=== PATIENT | male | born 1975 | race Caucasian/White ===

== ENCOUNTER 2019-04-29 22:05 | Emergency (ER) | payer MEDICAID ==
[~2019-04-29] VITALS: Ht 182.9 cm; Wt 80.7 kg
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
--- NOTE | 2019-04-30 00:11 | NUR ---
Patient discharged to home in stable condition. Rx and Written and verbal after care instructions given. Patient verbalizes understanding of instruction.
[2019-04-30 00:12] VITALS: BP 127/68
== END 2019-04-30 00:12 | disposition home or self-care (01) ==
LOC: ER 22:08
DX: M25.511 Pain in right shoulder (principal); F17.200 Nicotine dependence, unspecified, uncomplicated; V49.49XA Driver injured in collision with other motor vehicles in traffic accident, initial encounter; Y93.89 Activity, other specified; Y92.413 State road as the place of occurrence of the external cause; Y99.8 Other external cause status
CPT/HCPCS: 73030-TC

== ENCOUNTER 2022-06-01 16:03 | Emergency (ER) | payer MEDICAID ==
[~2022-06-01] VITALS: Ht 182.9 cm; Wt 78.9 kg
[2022-06-01 16:03] VITALS: BP 164/95
[2022-06-01] MEDS ORDERED: IBUPROFEN 600 MG TABLET ONE (17:26)
[2022-06-01] MEDS ORDERED: IBUPROFEN 600 MG TABLET PO ONE (17:30)
[2022-06-01] MEDS ORDERED: IBUP-1957 PO (18:24)
--- NOTE | 2022-06-01 18:29 | NUR ---
Patient discharged to home in stable condition. Written and verbal after care instructions given. Patient verbalizes understanding of instruction.
== END 2022-06-01 18:29 | disposition home or self-care (01) ==
LOC: ER 16:13
DX: S13.4XXA Sprain of ligaments of cervical spine, initial encounter (principal); F17.200 Nicotine dependence, unspecified, uncomplicated; V49.49XA Driver injured in collision with other motor vehicles in traffic accident, initial encounter; Y93.89 Activity, other specified; Y92.413 State road as the place of occurrence of the external cause; Y99.8 Other external cause status
CPT/HCPCS: 72125-TC